=== PATIENT | female | born 1965 | race Hispanic/Latino ===

== ENCOUNTER → 2024-02-03 | Day surgery (SDC) | payer OTHER ==
[~2024-02-03] MED LIST: ACETAMINOPHEN-1 EAC4 PO; DEXAMETHASONE SOD PHOS 10 MG/1 ML VIAL ONE; DEXAMETHASONE SOD PHOS INJ 4 MG/ML SDV ONE; EPHEDRINE SULFATE INJ 50 MG/ML VIAL ONE; FENTANYL CITRATE/PF 100MCG/2 ML INJ ONE; IBUPROFEN400 MG PO; KETOROLAC TROMETHAMINE 30 MG/ML VIAL ONE; LIDOCAINE HCL 2% LOCAL INJ 5 ML SDV VIAL INJ ONE; MIDAZOLAM HCL 2 MG/2 ML VIAL ONE; ONDANSETRON HCL INJ 2MG/ML 2ML 2 MG/ML VIAL ONE; PROPOFOL IV EMULSION 10 MG/ML 20 ML VIAL ONE; ROPIVACAINE 0.5% 5 MG/ML 30 ML SDV ONE; SEVOFLURANE INHAL SOLN 250 ML PEN BTL ONE; TYLENOL#3 PO; TYLENOL325 MG PO; ULTRAM 50MG50 MG PO
[2024-02-03] MEDS: LACTATED RINGER'S 1,000 ML ONE (08:28)
[2024-02-03] MEDS: HYDROMORPHONE 1MG/1ML INJ ONE (11:32)
[2024-02-03] MEDS: ACETAMINOPHEN/CODEINE 300MG - 30MG TAB ONE (12:35)
[2024-02-03 13:14] VITALS: BP 139/98; PULSE 94; RESP 17; TEMP 97.8; O2SAT 98
== END | disposition home or self-care (01) ==
LOC: OR 07:00
PROVIDERS: ATTEND Specialist
DX: S52.532A Colles' fracture of left radius, initial encounter for closed fracture (principal); M06.9 Rheumatoid arthritis, unspecified; W01.0XXA Fall on same level from slipping, tripping and stumbling without subsequent striking against object, initial encounter; Y93.01 Activity, walking, marching and hiking; Y92.89 Other specified places as the place of occurrence of the external cause; Z79.1 Long term (current) use of non-steroidal anti-inflammatories (NSAID); Z68.31 Body mass index [BMI] 31.0-31.9, adult
CPT/HCPCS: 25607; C1713; J0690; J1100 ×2; J1170; J1885; J2001; J2250; J2405; J2704; J2795; J3010; J7121; 76000